=== PATIENT | female | born 1955 | race Caucasian/White ===

== ENCOUNTER → 2017-04-12 | Outpatient (CLI) | payer OTHER ==
[~2017-04-12] MED LIST: ELMIRON; ESTRACE1 MG PO; LISINOPRIL10 MG PO; NORCO 10-325 T1 EACH PO; PRILOSEC 20 MG20 MG PO; PROZAC 20 MG20 M1 PO
== END ==
LOC: RAD 04-10 10:30 → ULTRA 01:10 → RAD 01:10
DX: R92.8 Other abnormal and inconclusive findings on diagnostic imaging of breast (principal)

== ENCOUNTER → 2018-04-13 | Outpatient (CLI) | payer OTHER | LOC: RAD 01:54 | DX: Z12.31 Encounter for screening mammogram for malignant neoplasm of breast (principal) ==

== ENCOUNTER → 2018-04-26 | Outpatient (CLI) | payer OTHER | LOC: ULTRA 01:20 | DX: N60.01 Solitary cyst of right breast (principal) ==

== ENCOUNTER → 2019-06-10 | Outpatient (CLI) | payer OTHER | LOC: RAD 01:39 | DX: Z12.31 Encounter for screening mammogram for malignant neoplasm of breast (principal) ==

== ENCOUNTER → 2020-09-22 | Outpatient (CLI) | payer OTHER | LOC: BC 08-17 10:05 | PROVIDERS: ATTEND Family Medicine | DX: Z12.31 Encounter for screening mammogram for malignant neoplasm of breast (principal) ==

== ENCOUNTER → 2021-01-28 | Outpatient (CLI) | payer OTHER | LOC: RAD 10:52 | PROVIDERS: ATTEND Internal Medicine | DX: R05 Cough (principal) ==

== ENCOUNTER → 2021-02-05 | Outpatient (CLI) | payer OTHER | LOC: CAT 13:03 | PROVIDERS: ATTEND Internal Medicine | DX: Z12.2 Encounter for screening for malignant neoplasm of respiratory organs (principal); Z87.891 Personal history of nicotine dependence; I25.10 Atherosclerotic heart disease of native coronary artery without angina pectoris ==

== ENCOUNTER → 2021-02-09 | Outpatient (CLI) | payer OTHER ==
[~2021-02-09] MED LIST changes: +ASA81BEC PO; +COZAAR 25 MG TA25 M1 PO; +HYDROCHLOROTH12.5 M1 PO; +LEXAPRO20 MG PO; +LORAZEPAM 0.50.5 MG PO; +PROAIR HFA8.5 GM INH
--- NOTE | 2021-03-22 11:22 | MCT ---
[facility] [place] [address] METHACHOLINE CHALLENGE TEST Name: LUX FLYNN Room #: REG [facility] Jung#: [id number] Admission: 02/09/21 Attend Phys: Gage Galvin MD Discharge: Date of : 51 Report #: [id number] THIS REPORT FOR: //name// COPIES FOR: AGE: 66 SEX/RACE: F/C Height: 62 in Exam Date: 02/09/21 Weight: 237 lbs BTPS: X >> PRE BRONCHODILATOR: PREDICTED BEST %PRED FORCED VITAL CAPACITY (FRC) 2.67 L LPM % FORCED EXP VOL/SEC (FEV1) 1.91 L FEV/FVC % MAX MID-EXP FLOW (FEF 25-75) 2.26 L/SEC L/SEC % PEAK EXP FLOW RATE (FEF MAX) 5.30 L/MIN L/MIN MED-VC RATIO (FEF 50/FEF 50) .09 Baseline: Phenol Saline Level 1: 0.025 mg/ml BEST %PRED %CHANGE BEST %PRED %CHANGE FVC 1.59 L 60 % -4 % FVC 1.58 L 59 % -1 % FEV1 1.16 L 61 % -11 % FEV1 1.14 L 60 % -2 % Level 2: 0.25 mg/ml Level 3: 2.5 mg/ml BEST %PRED %CHANGE BEST %PRED %CHANGE FVC 1.36 L 51 % -15 % FVC L % % FEV1 0.91 L 48 % -22 % FEV1 L % % . Level 4: 10 mg/ml Level 5: 25 mg/ml BEST %PRED %CHANGE BEST %PRED %CHANGE FVC L % % FVC L % % FEV1 L % % FEV1 L % % Post Bronchodilator: 1st Treatment Post Bronchodilator: 2nd Treatment BEST %PRED %CHANGE BEST %PRED %CHANGE FVC 1.89 L 71 % 19 % FVC L % % FEV1 1.40 L 73 % 20 % FEV1 L % % Post Bronchodilator: 3rd Treatment BEST %PRED %CHANGE [facility] [address] [place] [address] METHACHOLINE CHALLENGE TEST Name: LUX FLYNN Room #: REG [facility]#: [id number] Admission: 02/09/21 Attend Phys: Gage Galvin MD Discharge: Date of : 51 Report #: [id number] FVC L % % FEV1 L % % >> INTERPRETATION: DOC #: [id number] Hamilton Workman M.D. DATE OF SERVICE: 02/10/2021 METHACHOLINE CHALLENGE TEST ATTENDING PHYSICIAN: Dr. Gage Galvin. Methacholine challenge test was completed in a routine standard fashion with increasing doses of methacholine per protocol. Baseline FEV1 is 1.30 liters (127%). With increasing doses of methacholine, on 0.25 measured dose of methacholine, the patient's FEV1 decreased to 0.91 liters, which is 89% predicted or 22% change. She was given a bolus dose of bronchodilator therapy with return to normal function. IMPRESSION: This is a positive methacholine challenge test. Hamilton GALLO/DAMON/ERIK <ELECTRONICALLY SIGNED> By: Hamilton Workman MD 03/22/21 1122 Hamilton Workman MD /nt
--- NOTE | 2021-04-05 07:36 | PFR/MVV ---
[facility] [place] [address] PULMONARY FUNCTION MVV/REPORT Name: LUX FLYNN Room #: REG [facility]#: [id number] Admission: 02/09/21 Attend Phys: Gage Galvin MD Discharge: Date of : 51 Report #: [id number] THIS REPORT FOR: //name// COPIES FOR: AGE: 66 SEX/RACE: F/C >> SPIROMETRY: (BTPS) Height: 62 in cm Weight: 237 lbs kg Exam Date: 02/09/21 PRE-RX POST-RX PRED BEST %PRED BEST %PRED %CHG FVC LITERS . 2.67 . 1.71 . 64 . . . FEV1 LITERS . 1.91 . 1.39 . 73 . . . FEV1/FVC % . 72 . 81 . 112 . . . YTP28-28% L/Sec . 2.26 . 1.47 . 65 . . . PEF L/SEC . 5.30 . 4.33 . 82 . . . FEF50/FIF50 UNITLESS . . . . . . MVV L/Min . 86 . 41 . 47 f 1/Min . . . >> LUNG VOLUMES: (BTPS) PRE-RX POST-RX PRED AVG %PRED AVG %PRED %CHG VC Liters . 2.67 . 2.06 . 77 . . . TLC Liters . 4.44 . 3.83 . 86 . . . RV Liters . 1.74 . 1.77 . 102 . . . RV/TLC % . 39 . 46 . 117 . . . FRC [address] Liters . 1.81 . 2.00 . 111 . . . FRC N2 Liters . 1.81 . . . . . ERV Liters . 0.88 . 0.38 . 43 . . . IC Liters . 1.76 . 1.83 . 104 . . . >> DIFFUSION: DLCO ml/Min/mmHg . 24.4 . 1.3 . 5 . . . DL Sapna ml/Min/mmHg . 24.4 . 1.3 . 5 . . . DLCO/VA ml/Min/mmHg . 3.59 . 0.85 . 22 . . . VA Liters . . 1.60 . . . . [facility] [address] [place] [address] PULMONARY FUNCTION MVV/REPORT Name: LUX FLYNN Room #: REG [facility] Feng#: [id number] Admission: 02/09/21 Attend Phys: Gage Galvin MD Discharge: Date of : 51 Report #: [id number] COMMENTS: COMMENTS: >> RESISTANCE: PRE-RX PRED AVG %PRED Raw Total cmH20/L/Sec . . 7.65 . Raw Insp cmH20/L/Sec . . 6.70 . Raw Exp cmH20/L/Sec . . 6.08 . Raw cmH20/L/Sec . 2.25 . 7.57 . 337 Gaw L/Sec/cmH20 . 0.433 . 0.132 . 31 sRaw cmH20 Sec . 4.06 . 22.23 . 548 sGaw l/cmH20 Sec . 0.246 . 0.045 . 18 Vtq Liters . . 2.94 . # = OUTSIDE 95% CONFIDENCE INTERVAL CALIBRATION: PRED: 3.00 ACTUAL: EXP 3.01 INSP 3.02 [facility]-OL10-06 [facility]-05 N-1804-4 >> INTERPRETATION/IMPRESSION: DOC #: [id number] Hamilton Workman M.D. DATE OF SERVICE: 02/09/2021 PULMONARY FUNCTION STUDY SPIROMETRY: FEV1 is 1.39 liters (73%), FVC is 1.71 liters (64%), FEV1/FVC ratio is 81%. LUNG VOLUMES: Total lung Capacity is 3.83 liters (86%). RV is 1.77 liters (102%). IC to ERV ratio is 1.83 liters to 0.38 liters. 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 This was attached to a methacholine challenge test, which was positive for a significant response to bronchodilator therapy. Please correlate clinically. Hamilton Workman M.D. [facility]/[address] [address] PULMONARY FUNCTION MVV/REPORT Name: LUX FLYNN Room #: [facility] Feng#: [id number] Admission: 02/09/21 Attend Phys: Gage Glavin MD Discharge: Date of : 51 Report #: [id number] <ELECTRONICALLY SIGNED> By: Hamilton Workman MD 04/05/21 0736 Hamilton Workman MD /nt
== END ==
LOC: PUL 09:46
PROVIDERS: ATTEND Internal Medicine
DX: R94.2 Abnormal results of pulmonary function studies (principal); R06.02 Shortness of breath; Z88.5 Allergy status to narcotic agent; Z88.2 Allergy status to sulfonamides; Z88.0 Allergy status to penicillin; Z88.8 Allergy status to other drugs, medicaments and biological substances

== ENCOUNTER → 2021-02-10 | Outpatient (CLI) | payer OTHER ==
[~2021-02-10] MED LIST changes: -ASA81BEC PO; -COZAAR 25 MG TA25 M1 PO; -HYDROCHLOROTH12.5 M1 PO; -LEXAPRO20 MG PO; -LORAZEPAM 0.50.5 MG PO; -PROAIR HFA8.5 GM INH
--- NOTE | ~2021-02-10 | MCT ---
[facility] [place] [address] METHACHOLINE CHALLENGE TEST Name: LUX FYLNN Room #: REG [facility]#: [id number] Admission: 02/10/21 Attend Phys: Michoacano Waters MD, [facility] Discharge: Date of : 51 Report #: [id number] THIS REPORT FOR: //name// Height: in Exam Date: Weight: lbs BTPS: X >> PRE BRONCHODILATOR: PREDICTED BEST %PRED FORCED VITAL CAPACITY (FRC) L LPM % FORCED EXP VOL/SEC (FEV1) L FEV/FVC % MAX MID-EXP FLOW (FEF 25-75) L/SEC L/SEC % PEAK EXP FLOW RATE (FEF MAX) L/MIN L/MIN MED-VC RATIO (FEF 50/FEF 50) .09 Baseline: Phenol Saline Level 1: 0.025 mg/ml BEST %PRED %CHANGE BEST %PRED %CHANGE FVC L % % FVC L % % FEV1 L % % FEV1 L % % Level 2: 0.25 mg/ml Level 3: 2.5 mg/ml BEST %PRED %CHANGE BEST %PRED %CHANGE FVC L % % FVC L % % FEV1 L % % FEV1 L % % . Level 4: 10 mg/ml Level 5: 25 mg/ml BEST %PRED %CHANGE BEST %PRED %CHANGE FVC L % % FVC L % % FEV1 L % % FEV1 L % % Post Bronchodilator: 1st Treatment Post Bronchodilator: 2nd Treatment BEST %PRED %CHANGE BEST %PRED %CHANGE FVC L % % FVC L % % FEV1 L % % FEV1 L % % Post Bronchodilator: 3rd Treatment BEST %PRED %CHANGE FVC L % % FEV1 L % % >> INTERPRETATION: [facility] [address] [place] [address] METHACHOLINE CHALLENGE TEST Name: LUX FLYNN Alayna Room #: [id number] Admission: 02/10/21 Attend Phys: Michoacano Waters MD, [facility] Discharge: Date of : 51 Report #: [id number] DOC #: [id number] Hamilton Workman M.D. DATE OF SERVICE: 02/10/2021 METHACHOLINE CHALLENGE TEST ATTENDING PHYSICIAN: Dr. Gage Galvin. Methacholine challenge test was completed in a routine standard fashion with increasing doses of methacholine per protocol. Baseline FEV1 is 1.30 liters (127%). With increasing doses of methacholine, on 0.25 measured dose of methacholine, the patient's FEV1 decreased to 0.91 liters, which is 89% predicted or 22% change. She was given a bolus dose of bronchodilator therapy with return to normal function. IMPRESSION: This is a positive methacholine challenge test. Hamilton GALLO/CARLA By: Hamilton Workman MD /lazara
== END ==
LOC: SJCVC 11:38
PROVIDERS: ATTEND Internal Medicine
DX: Z13.220 Encounter for screening for lipoid disorders (principal); R94.31 Abnormal electrocardiogram [ECG] [EKG]; M19.90 Unspecified osteoarthritis, unspecified site; E66.9 Obesity, unspecified; F41.9 Anxiety disorder, unspecified; F32.9 Major depressive disorder, single episode, unspecified; F12.90 Cannabis use, unspecified, uncomplicated; F19.90 Other psychoactive substance use, unspecified, uncomplicated; Z79.899 Other long term (current) drug therapy; Z87.891 Personal history of nicotine dependence; Z88.5 Allergy status to narcotic agent; Z88.1 Allergy status to other antibiotic agents; Z88.2 Allergy status to sulfonamides; Z88.0 Allergy status to penicillin; Z88.8 Allergy status to other drugs, medicaments and biological substances

== ENCOUNTER → 2021-02-23 | Outpatient (CLI) | payer OTHER | LOC: SJCVCIMAG 07:41 | PROVIDERS: ATTEND Internal Medicine | DX: R94.31 Abnormal electrocardiogram [ECG] [EKG] (principal); E78.5 Hyperlipidemia, unspecified; I10 Essential (primary) hypertension; R07.2 Precordial pain; M19.90 Unspecified osteoarthritis, unspecified site; E66.9 Obesity, unspecified; K22.70 Barrett's esophagus without dysplasia; K21.9 Gastro-esophageal reflux disease without esophagitis; F41.9 Anxiety disorder, unspecified; Z87.891 Personal history of nicotine dependence; Z72.89 Other problems related to lifestyle; Z88.5 Allergy status to narcotic agent; Z79.899 Other long term (current) drug therapy ==

== ENCOUNTER → 2021-03-02 | Outpatient (CLI) | payer OTHER ==
[~2021-03-02] VITALS: Ht 157.5 cm; Wt 109.3 kg
[~2021-03-02] MED LIST changes: +ASA81BEC PO; +COZAAR 25 MG TA25 M1 PO; +HYDROCHLOROTH12.5 M1 PO; +LEXAPRO20 MG PO; +LORAZEPAM 0.50.5 MG PO; +PROAIR HFA8.5 GM INH
[2021-03-02 07:12] VITALS: BP 116/69
--- NOTE | 2021-03-02 07:23 | EKG ---
[place] [address] [facility] [place] [address] ELECTROCARDIOGRAM REPORT Name: LUX FLYNN Alayna Room #: REG [facility]#: [id number] Admission: 03/02/21 Attend Phys: Michoacano Waters MD, Discharge: Date of : 51 Report #: [id number] 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 : 1955 Requested By: Tiburcio Pabon Order Number: [id number] MD: Michoacano Waters Measurements Intervals Banning Rate: 85 P: 67 TN: 170 QRS: -36 QRSD: 94 T: 38 QT: 367 QTc: 437 Interpretive Statements Sinus rhythm Low voltage, precordial leads Abnormal R-wave progression, early transition Probable left ventricular hypertrophy Compared to ECG 02/15/2010 15:07:50 Low QRS voltage now present Electronically Signed On 03-02-2021 7:23:13 CDT by Michoacano Waters [email or web address] <ELECTRONICALLY SIGNED> By: Michoacano Waters MD, [facility] 03/02/21722 7 7 Michoacano Waters MD, [facility] /EPI
[2021-03-02 08:25] LABS: HEMATOCRIT 40.6 % (37.0-47.0); HEMOGLOBIN 13.5 gm/dL (12.0-15.0); MCH 30.5 pg (26.0-34.0); MCHC 33.3 g/dL (28.0-37.0); MCV 91.7 fL (80.0-100.0); RBC 4.42 mil/uL (4.20-5.00); RDW 13.2 % (10.5-14.5)
[2021-03-02 08:54] LABS: CALCIUM 8.7 mg/dL (8.5-10.1); CREATININE 0.9 mg/dL (0.6-1.0); POTASSIUM 3.2 mmol/L (3.5-5.1)
--- NOTE | 2021-03-02 14:47 | CATHLAB ---
[facility] [place] [address] INVASIVE PROCEDURE REPORT Name: LUX FLYNN Room #: REG RAMÓN Mcclain.#: [id number] Admission: 03/02/21 Attend Phys: Michoacano Waters MD, Discharge: Date of : 51 Report #: [id number] THIS REPORT FOR: cc: Adan Benoit James A. DO Mancuso, Gerald M. MD [facility] ~ APPROVED REPORT Study performed: 03/02/2021 07:17:27 Patient Details Patient Status: Out-Patient Room #: The patient is a 66 year-old female Event Personnel Tiburcio Pabon Diamond Assorter, Arlyn Ray RTR Monitor, Farzana Miranda RN RN, Priya Salvador RTR, SHAILESH Scrub, Mariposa Gaston RTR Buyers' Agent Procedures Performed Art Access - R femoral artery* Right and Left Heart Cath w/or w/o Coronarie [id number] [facility] Aortogram Abdominal Peripheral Angio 338723 Hemostasis w/ Mynx 96512 Initial Mod Sed Same Phys/QHP Gr5y [id number] 65388 Mod Sed Same Phys/QHP Ea 112977 Procedure Narrative The Right Groin^ was infiltrated with 1% Lidocaine subcutaneous anesthesia. A PINNACLE 6FR Sheath #[id number] sheath was inserted into the RFV. Coronary angiography was performed using coronary diagnostic catheters. The right coronary system was accessed and visualized with a JR4 catheter. The left coronary system was accessed and visualized with a JL4 catheter. The left ventricle was accessed and visualized with a PIGTAIL catheter. Left ventriculogram was performed in 30 degree projection. An aortogram of the abdominal aorta was performed. Closure device was deployed with a Fr MYNXGRIP 6/7F #[id number]. The patient tolerated the procedure well and there were no complications associated with the procedure. There was no hematoma. Intraoperative Conscious Sedation Sedation start time: 9:10 Case end Time: 9:51 Fentanyl 50 mcg Versed 2 mg Fluoro Time: 1.80 minutes [facility] [address] [place] [address] INVASIVE PROCEDURE REPORT Name: LUX FLYNN Room #: REG [facility]#: [id number] Admission: 03/02/21 Attend Phys: Michoacano Waters, Discharge: Date of : 51 Report #: [id number] Dose: DAP 7154.00 cGycm2 848 mGy Contrast Type and Amount: Visipaque 95 ml Hemodynamics The right atrial mean pressure is 13 mmHg. The right ventricular pressure is 39/4 mmHg. The pulmonary artery pressure is 35/12 mmHg with a mean of 23 mmHg. The mean pulmonary capillary wedge pressure is 19 mmHg. The aortic pressure is 121/64 mmHg with a mean of 98 mmHg. The left ventricular pressure is 149/3 mmHg with a mean of mmHg. The left ventricular end diastolic pressure is 13 mmHg. The cardiac output using thermo method is 5.90 L/min. The cardiac index using thermo method is 2.86 L/min/m2. Conclusion #1. Successful right heart catheterization with cardiac output by thermodilution. See above hemodynamics. #2 abdominal aortogram revealing normal caliber aorta mild plaquing is noted brisk distal flow no aneurysm. #3 left main free of disease giving rise to LAD and circumflex. No occlusive disease #4 LAD with mild distal plaquing no occlusive disease. #5 nondominant circumflex widely patent single large OM branch. #6 large dominant right coronary artery without occlusive disease. Recommendations and plan: Continue aggressive risk factor modification. No indication for coronary intervention. Mild elevations in pulmonary pressures. Diuretics will be added per Dr. Waters. <ELECTRONICALLY SIGNED> By: Tiburcio Pabon MD, FACC 03/02/21 1447 1447 1447 Tiburcio Pabon MD, FACC /INF
== END | disposition home or self-care (01) ==
LOC: CATH 06:37
PROVIDERS: Internal Medicine Cardiovascular Disease; ATTEND Internal Medicine
DX: R07.9 Chest pain, unspecified (principal); I25.10 Atherosclerotic heart disease of native coronary artery without angina pectoris; I70.0 Atherosclerosis of aorta; I11.0 Hypertensive heart disease with heart failure; I50.9 Heart failure, unspecified; M19.90 Unspecified osteoarthritis, unspecified site; F32.9 Major depressive disorder, single episode, unspecified; K21.9 Gastro-esophageal reflux disease without esophagitis; M79.7 Fibromyalgia; Z98.890 Other specified postprocedural states; Z79.899 Other long term (current) drug therapy; Z90.710 Acquired absence of both cervix and uterus; Z82.49 Family history of ischemic heart disease and other diseases of the circulatory system; Z87.891 Personal history of nicotine dependence; Z88.0 Allergy status to penicillin; Z88.2 Allergy status to sulfonamides; Z88.8 Allergy status to other drugs, medicaments and biological substances

== ENCOUNTER → 2021-09-14 | Outpatient (CLI) | payer OTHER | LOC: SJCVC 14:00 | PROVIDERS: ATTEND Internal Medicine | DX: I10 Essential (primary) hypertension (principal); F41.9 Anxiety disorder, unspecified; M19.90 Unspecified osteoarthritis, unspecified site; J45.909 Unspecified asthma, uncomplicated; K22.70 Barrett's esophagus without dysplasia; F32.A Depression, unspecified; E66.9 Obesity, unspecified; Z87.891 Personal history of nicotine dependence; Z79.899 Other long term (current) drug therapy; Z88.5 Allergy status to narcotic agent; Z88.8 Allergy status to other drugs, medicaments and biological substances ==

== ENCOUNTER → 2021-09-23 | Outpatient (CLI) | payer OTHER | LOC: BC 11:00 | PROVIDERS: ATTEND Family Medicine | DX: Z12.31 Encounter for screening mammogram for malignant neoplasm of breast (principal) ==